=== PATIENT | female | born 1965 | race Hispanic/Latino ===

== ENCOUNTER 2021-05-18 16:02 | Emergency (ER) | payer SELFPAY ==
--- NOTE | 2021-05-18 16:21 | RAD REPORT ---
EXAM DESCRIPTION: RAD - Chest Single View - 05/18/2021 4:14 pm CLINICAL HISTORY: CPR COMPARISON: No comparisons FINDINGS: Endotracheal tube terminates in the right mainstem bronchus. The left lung is completely o pacified possibly secondary to underlying collapse. There are patchy airspace disease throughout the right lung though most notable within the right upper lobe. Defibrillator pad is seen. The stomach is distended. IMPRESSION: 1. Endotracheal tube in the right mainstem bronchus. This should be retracted by at rosa t 5 centimeters. Discussed with Walt in the ED by Dr. Winkler at 1615 on 05/18/21. 2. Complete opacification of the left hemithorax may be secondary to atelectasis as a result of the r ight mainstem bronchus intubation. There are irregular airspace opacities throughout the right lung t hat could reflect multiple etiologies though aspiration is a primary consideration.
[2021-05-18] MEDS ORDERED: NOREPINEPHRINE 4mg/D5W 250mL 4 MG/250 ML BAG IV ONE ×3 (16:37→23:13)
[2021-05-18 16:40] LABS: Absolute Lymphocytes (CBC) 10.1 K/uL (0.7-4.9); Basophils % 0.9 % (0-1.3); Hematocrit 48.8 % (36.0-45.0); Lymphocytes % 51.4 % (15.3-44.8); MPV 8.5 fL (7.6-11.3); RBC Red Blood Cell Count 5.29 M/uL (3.86-4.86)
[2021-05-18 16:50] LABS: Protime INR 1.09
--- NOTE | 2021-05-18 16:53 | RAD REPORT ---
EXAM DESCRIPTION: RAD - Chest Single View - 05/18/2021 4:41 pm CLINICAL HISTORY: post intubation COMPARISON: Chest Single View dated 05/18/2021 FINDINGS: Retracted endotracheal tube with improved aeration of left lung. The ET tube is at the car maritza and angled toward the right mainstem bronchus. . Widespread bilateral airspace disease is noted. Defibrillator pad. The heart size is within normal limits. A round calcified structure overlies the r ight upper quadrant. IMPRESSION: Endotracheal tube has been retracted and is at the era. Suggest retracting by another 2 centimeters for more optimal positioning. Widespread bilateral airspace disease may reflect massiv e aspiration, pneumonia, and/or pulmonary edema.
[2021-05-18 17:10] LABS: Blood Morphology Comment NOT SEEN (NOT SEEN); Platelet Estimate ADEQ; White Blood Cell Scan OK (OK)
--- NOTE | 2021-05-18 17:34 | RAD REPORT ---
EXAM DESCRIPTION: RAD - Chest Single View - 05/18/2021 5:21 pm CLINICAL HISTORY: POST ETT COMPARISON: Chest Single View dated 05/18/2021; Chest Single View dated 05/18/2021 FINDINGS: Retracted endotracheal tube now in better positioning. Re- demonstrated bilateral widespre ad airspace disease. An enteric tube is in place with tip overlying the stomach. IMPRESSION: Endotracheal tube in better position just above the era. An enteric tube tip terminat es overlying the stomach.
--- NOTE | 2021-05-18 17:42 | RAD REPORT ---
EXAM DESCRIPTION: CT - Head Brain Wo Cont - 05/18/2021 5:29 pm CLINICAL HISTORY: Post CPR...Had headache and numbess prior to event COMPARISON: No comparisons TECHNIQUE: All CT scans are performed using dose optimization technique as appropriate and may inclu de automated exposure control or mA/KV adjustment according to patient size. FINDINGS: Large right cerebellar intraparenchymal hemorrhage measuring 3.8 x 2.3 centimeters. There is increased dilatation of the ventricular system. The basilar cisterns are effaced and there is karissa r mass effect on the brainstem. Some hemorrhage is noted in the third and fourth ventricles. No skull fracture. There is a subdural component as well along the right transverse sinus. IMPRESSION: Large right cerebellar intraparenchymal hemorrhage with intraventricular extension resul ting in effacement of the basilar cisterns, significant mass effect on the brainstem, and developing hydrocephalus. Discussed with Hira Hoffmann by Dr. Winkler at [id number] on 05/18/21
[2021-05-18 17:52] LABS: Arterial Blood Carboxyhemoglob 0.1 % (0-1.5); Blood Gas Oxyhemoglobin 73.3 % (94-97); Blood O2 Saturation 74.1 % (92-98.5)
[2021-05-18] MEDS ORDERED: NOREPINEPHRINE 4 MG in D5W 250 ML IV PRN (18:27)
[2021-05-18 19:30] LABS: Albumin 3.3 g/dL (3.4-5.0); Bilirubin Direct 0.3 mg/dL (0-0.2); Bilirubin Total 0.9 mg/dL (0.2-1.0)
[2021-05-18 19:39] LABS: Potassium 4.4 mmol/L (3.5-5.1)
[2021-05-18 19:42] LABS: Troponin (Emerg Dept Use Only) 1.33 ng/mL (0.0-0.045)
[2021-05-19] MEDS ORDERED: D5W 250 ML IV ONE ×3 (00:22→05:03)
[2021-05-19] MEDS ORDERED: NOREPINEPHRINE 4 MG/4 ML VIAL ONE ×4 (00:22→07:14)
[2021-05-19] MEDS ORDERED: D10W 250 ML IV ONE (07:15)
[2021-05-19] MEDS ORDERED: NOREPINEPHRINE 8 MG in Dextrose 5%-Water 500 ML IV PRN (07:19)
[2021-05-19] MEDS ORDERED: NA CHLORIDE 0.9% 250 ML ONE (07:21)
[2021-05-19] MEDS ORDERED: DOPAMINE/D5W 400 MG/250 ML BAG IV ONE (12:28)
[2021-05-19 12:53] LABS: Arterial Blood Carboxyhemoglob 0.6 % (0-1.5); Blood Gas Oxyhemoglobin 93.9 % (94-97); Blood O2 Saturation 95.5 % (92-98.5)
[2021-05-19 13:07] LABS: Arterial Blood Carboxyhemoglob 0.1 % (0-1.5); Blood Gas Oxyhemoglobin 97.6 % (94-97); Blood O2 Saturation 98.9 % (92-98.5)
[2021-05-19] MEDS ORDERED: Phenylephrine HCl 10 MG/ML 1 ML VIAL ONE (13:48)
[2021-05-19] MEDS ORDERED: NA CHLORIDE 0.9% 100 ML ONE ×2 (13:49→17:48)
--- NOTE | 2021-05-19 14:17 | P.PN ---
Date of Service: 05/19/21 CT scan: FINDINGS: Large right cerebellar intraparenchymal hemorrhage measuring 3.8 x 2.3 centimeters. There is increased dilatation of the ventricular system. The basilar cisterns are effaced and there is clear mass effect on the brainstem. Some hemorrhage is noted in the third and fourth ventricles. No skull fracture. There is a subdural component as well along the right transverse sinus. IMPRESSION: Large right cerebellar intraparenchymal hemorrhage with intraventricular extension resulting in effacement of the basilar cisterns, significant mass effect on the brainstem, and developing hydrocephalus. Patient presented to the ER with CPR in progress. Work-up included CT scan showing large right cerebellar hemorrhage with intraventricular extension resulting in effacement of basilar cisterns. Significant mass-effect on brainstem and developing hydrocephalus. Case discussed at length with ER physicians. Patient not able to be transferred as neurosurgery recommended withdrawal of care. The patient was monitored for any changes. No reflexes noted. No significant change in status. Evaluation for spontaneous breathing failed. ER provider reports family to withdrawal care. Prognosis poor. Proceed with withdrawal of care.
[2021-05-19] MEDS ORDERED: LEVOTHYROXINE SODIUM 100 MCG VIAL IV ONE (16:45)
[2021-05-19 16:59] LABS: Absolute Lymphocytes (CBC) 2.8 K/uL (0.7-4.9); Basophils % 0.4 % (0-1.3); Hematocrit 46.1 % (36.0-45.0); Lymphocytes % 21.3 % (15.3-44.8); MPV 7.7 fL (7.6-11.3); RBC Red Blood Cell Count 5.16 M/uL (3.86-4.86)
[2021-05-19] MEDS ORDERED: ROSUVASTATIN 10 MG TAB PO SCH (17:00)
[2021-05-19] MEDS ORDERED: LEVOTHYROXINE SODIUM 100 MCG VIAL IV SCH (17:00)
[2021-05-19] MEDS ORDERED: ESTROGENS,CONJ 25 MG IV IV SCH (17:00)
[2021-05-19] MEDS ORDERED: NACHLORIDE 0.45% 500 ML IV SCH (17:00)
[2021-05-19 17:11] LABS: Protime INR 1.15
[2021-05-19] MEDS ORDERED: ACETAMINOPHEN 120 MG/SUPP PR ONE (17:13)
[2021-05-19] MEDS ORDERED: ACETAMINOPHEN 325 MG/SUPP PR ONE (17:13)
[2021-05-19] MEDS ORDERED: ACETAMINOPHEN 650MG/RECT SUPP PR ONE (17:14)
[2021-05-19 17:23] LABS: Albumin 2.8 g/dL (3.4-5.0); Bilirubin Direct 0.7 mg/dL (0-0.2); Bilirubin Total 1.5 mg/dL (0.2-1.0); Phosphorus 5.4 mg/dL (2.5-4.9); Potassium 3.7 mmol/L (3.5-5.1); Protein, Total 6.5 g/dL (6.4-8.2)
[2021-05-19 17:27] LABS: CKMB Creatine Kinase MB 34.1 ng/mL (1.0-3.6); Troponin (Emerg Dept Use Only) 6.1 ng/mL (0.0-0.045)
[2021-05-19] MEDS ORDERED: VASOPRESSIN 80 UNIT in NA CHLORIDE 0.9% 250 ML IV PRN (17:44)
[2021-05-19] MEDS ORDERED: ALBUTEROL 2.5 MG/3 ML NEB SOL ONE (17:45)
[2021-05-19] MEDS ORDERED: NA CHLORIDE 0.9% 1,000 ML ONE ×2 (17:48→21:31)
[2021-05-19] MEDS ORDERED: HEPARIN 5000 UNIT/ML 1 ML VIAL ONE (17:48)
[2021-05-19] MEDS ORDERED: HYDROCORTISONE SUC 100 MG INJ ONE (17:48)
[2021-05-19] MEDS ORDERED: PIPERACIL/TAZO 3.375 GM VIAL IV ONE (17:48)
--- NOTE | 2021-05-19 17:53 | RAD REPORT ---
EXAM DESCRIPTION: RAD - Chest Single View - 05/19/2021 5:31 pm CLINICAL HISTORY: [facility] COMPARISON: May 18 TECHNIQUE: AP portable chest image was obtained 05/19/2021 5:31 pm . FINDINGS: Portable supine chest shows low lung volumes. Endotracheal tube is in place. Tip is 1 cent imeter above the era similar to prior imaging. NG tube tip is in the proximal stomach with the dede e port at the GE junction. Patchy interstitial and alveolar opacities are present improved from prior imaging. Heart and vascula ture are normal. No measurable pleural effusion and no pneumothorax. No acute bony abnormality seen. No acute aortic findings suspected. Rounded eggshell calcification mass of the right upper quadrant n oted but not fully evaluated. IMPRESSION: Interstitial and alveolar opacities have shown improvement from prior day imaging. Endotracheal tube tip is 1 centimeter above the era, similar to prior day study. No change in posi tion of the NG tube.
[2021-05-19] MEDS ORDERED: ESTROGENS,CONJ 25 MG IV ONE (17:54)
[2021-05-19] MEDS ORDERED: WATER FOR INJ,STERILE 10 ML ONE (17:55)
[2021-05-19] MEDS ORDERED: VASOPRESSIN 80 UNIT in NA CHLORIDE 0.9% 250 ML IV SCH (18:00)
[2021-05-19 20:43] LABS: Arterial Blood Carboxyhemoglob 0.7 % (0-1.5); Blood Gas Oxyhemoglobin 95.1 % (94-97); Blood O2 Saturation 96.9 % (92-98.5)
[2021-05-19] MEDS ORDERED: NOREPINEPHRINE 4mg/D5W 250mL 4 MG/250 ML BAG IV ONE (21:26)
[2021-05-19 21:53] LABS: Arterial Blood Carboxyhemoglob 0.7 % (0-1.5); Blood Gas Oxyhemoglobin 97.3 % (94-97); Blood O2 Saturation 99.2 % (92-98.5)
[2021-05-19 22:35] LABS: Arterial Blood Carboxyhemoglob 0.7 % (0-1.5); Blood Gas Oxyhemoglobin 97.1 % (94-97); Blood O2 Saturation 99.1 % (92-98.5)
[2021-05-19] MEDS ORDERED: KCL 20 MEQ/100 mL IVPB 20 MEQ/100 ML BAG IV ONE (23:03)
[2021-05-20] MEDS ORDERED: NOREPINEPHRINE 4mg/D5W 250mL 4 MG/250 ML BAG IV ONE ×2 (00:58→05:31)
[2021-05-20 02:55] LABS: Absolute Lymphocytes (CBC) 1.3 K/uL (0.7-4.9); Basophils % 0.5 % (0-1.3); Hematocrit 42.5 % (36.0-45.0); Lymphocytes % 17.4 % (15.3-44.8); MPV 8.5 fL (7.6-11.3); RBC Red Blood Cell Count 4.77 M/uL (3.86-4.86)
[2021-05-20 02:59] LABS: Protime INR 1.29
[2021-05-20 03:16] LABS: Magnesium 1.9 mg/dL (1.8-2.4); Phosphorus 2.7 mg/dL (2.5-4.9); Potassium 3.4 mmol/L (3.5-5.1)
[2021-05-20 03:18] LABS: CKMB Creatine Kinase MB 22.5 ng/mL (1.0-3.6); Troponin I 3.47 ng/mL (0.0-0.045)
[2021-05-20] MEDS ORDERED: ACETAMINOPHEN 650MG/RECT SUPP PR ONE (03:27)
[2021-05-20] MEDS ORDERED: LEVOTHYROXINE SODIUM 100 MCG VIAL IV ONE (04:14)
[2021-05-20] MEDS ORDERED: NACHLORIDE 0.45% 1,000 ML IV ONE (04:32)
[2021-05-20 04:54] LABS: Albumin 2.4 g/dL (3.4-5.0); Bilirubin Total 2.1 mg/dL (0.2-1.0)
[2021-05-20 05:01] LABS: Arterial Blood Carboxyhemoglob 0.6 % (0-1.5); Blood Gas Oxyhemoglobin 97.4 % (94-97); Blood O2 Saturation 99.2 % (92-98.5)
[2021-05-20] MEDS ORDERED: PIPERACIL/TAZO 3.375 GM VIAL IV ONE (07:13)
[2021-05-20] MEDS ORDERED: HYDROCORTISONE SUC 100 MG INJ ONE (07:13)
[2021-05-20] MEDS ORDERED: NA CHLORIDE 0.9% 100 ML ONE (07:13)
[2021-05-20] MEDS ORDERED: NOREPINEPHRINE 4 MG/4 ML VIAL ONE (08:16)
[2021-05-20] MEDS ORDERED: D5W 250 ML IV ONE (08:17)
--- NOTE | 2021-05-20 08:58 | ER ---
Nurse's Notes [facility] Name: Lesly Vaughn Age: 55 yrs Sex: Female : 1965 Arrival Date: 05/18/2021 Time: 16:03 Bed 3 Private MD: Diagnosis: Other nontraumatic intracerebral hemorrhage Presentation: 05/18 15:58 Chief complaint: EMS states: they arrived to home, patient was alert upon arrival ap3 complaining of headache and numbness in her arms. EMS reports patient lost consciousness and pulse while in route to hospital. 15:58 Care prior to arrival: CPR manually performed by EMS. Compressions began prior to ap3 arrival. 15:58 Method Of Arrival: EMS: [facility] ap3 15:58 Acuity: DAYO 1 ap3 15:58 Care prior to arrival: Oral intubation, Medication(s) given: EPI X's 2. ap3 17:00 Coronavirus screen: At this time, the client does not indicate any symptoms associated jd3 with coronavirus-19. Ebola Screen: Patient negative for fever greater than or equal to 101.5 degrees Fahrenheit, and additional compatible Ebola Virus Disease symptoms. Initial Sepsis Screen: Does the patient meet any 2 criteria? No. Patient's initial sepsis screen is negative. Does the patient have a suspected source of infection? No. Patient's initial sepsis screen is negative. 17:12 Risk Assessment: Do you want to hurt yourself or someone else? Unable to obtain. Onset ap3 of symptoms was May 18, 2021. Triage Assessment: 17:12 General: Appears distressed, Behavior is unresponsive. Pain: Unable to use pain scale. ap3 Patient is unresponsive. Historical: - Allergies: 17:11 No Known Allergies; ap3 - Home Meds: 17:11 None [Active]; ap3 - PMHx: 17:11 None; ap3 - Immunization history:: Adult Immunizations unknown. - Social history:: Smoking status: unknown. Screenin:11 Abuse screen: Denies threats or abuse. Nutritional screening: No deficits noted. ap3 Tuberculosis screening: No symptoms or risk factors identified. 17:49 Fall Risk Total Richardson Fall Scale indicates No Risk (0-24 pts). jd3 Assessment: 15:58 CPR assessment: unresponsive, no respiratory effort, intubated, Ambu ventilation, ap3 pulses absent w/ compressions. 15:59 General: patient moved to stretcher, defibrillator pads placed. ap3 16:00 Reassessment:. General: Appears distressed, Behavior is unresponsive. jd3 17:14 Respiratory: Breath sounds are diminished in left lower lobe after initial intubation. jd3 17:20 General: Behavior is unresponsive. Pain: Unable to use pain scale. Patient is jd3 intubated. Neuro: Level of Consciousness is unresponsive, intubated. Pupils are fixed, constricted. Cardiovascular: Heart tones present Rhythm is regular. Respiratory: Breath sounds are clear bilaterally. after ET tube was retracted to proper placement. 17:45 Reassessment: No changes from previously documented assessment. Patient and/or family jd3 updated on plan of care and expected duration. Pain level reassessed. cell phone and car keys given to pt's daughter. 18:00 Reassessment: No changes from previously documented assessment. Patient and/or family jd3 updated on plan of care and expected duration. Pain level reassessed. daughter remains at bedside. 18:53 Reassessment: family at bedside. ap3 18:57 Reassessment: No changes from previously documented assessment. Patient and/or family jd3 updated on plan of care and expected duration. Pain level reassessed. provider at bedside discussing plan of care with family. 20:03 Reassessment: Pt remains unresponsive, intubated. with family at the bedside. IV jb4 medications infusing without difficulty. [facility] updated on pt status. 21:00 Reassessment: No changes from previously documented assessment. Patient and/or family jb4 updated on plan of care and expected duration. Pain level reassessed. 22:00 Reassessment: No changes from previously documented assessment. Patient and/or family jb4 updated on plan of care and expected duration. Pain level reassessed. 23:00 Reassessment: No changes from previously documented assessment. Patient and/or family jb4 updated on plan of care and expected duration. Pain level reassessed. 05/19 07:00 Reassessment: Report received from Makenzie SUAREZ, family at bedside, pt intubated and hb unresponsive, on Levophed and Dopamine, awaiting [facility] at this time. 07:43 Reassessment: Reassessment: Spoke with Brenda, sending Patient Liaison from [facility]. Pt remains intubated, on pressors, unresponsive. Family at bedside. 08:15 Reassessment: No changes from previously documented assessment. Patient and/or family hb updated on plan of care and expected duration. Pain level reassessed. 09:28 Reassessment: No changes from previously documented assessment. Patient and/or family hb updated on plan of care and expected duration. Pain level reassessed. 10:30 Reassessment: No changes from previously documented assessment. Patient and/or family hb updated on plan of care and expected duration. Pain level reassessed. 11:32 Reassessment: KYM Caceres and Jasmin RT at bedside. hb 12:45 Reassessment: No changes from previously documented assessment. Patient and/or family hb updated on plan of care and expected duration. Pain level reassessed. 13:30 Reassessment: Family at bedside, [facility] reps in house. Pt remains intubated and on hb pressors. 13:32 General: KYM Caceres notified SBP 80s, HR 150, dopamine discontinued, tamra started at 50 hb mcg/min.. 14:24 Reassessment: Patient and/or family updated on plan of care and expected duration. Pain hb level reassessed. Family remains at bedside. 15:16 Reassessment: No changes from previously documented assessment. hb 15:32 Reassessment: [facility] reps and family at bedside. hb 16:12 Reassessment: Pt remains intubated and on pressors. Family at bedside. Awaiting [facility] direction at this time. 17:07 Reassessment: KYM Caceres and [facility] coordinator notified catheter temp 100.3, pt cleaned hb of incontinence and rectal Tylenol administered as ordered. Repeat bloodwork sent. Awaiting medication delivery from pharmacy at this time. 18:08 Reassessment: No changes from previously documented assessment. hb 19:44 Reassessment: [facility] Coordinator at bedside, vasopressin infusion stopped at this iw time. 21:09 Reassessment: repeat ABG done, vent setting changed, Levophed titrated down. iw 05/20 08:00 Reassessment: Pt remains intubated, on pressors. [facility] nurse present, awaiting hb transport at this time. Vital Signs: 05/18 16:03 BP 176 / 140; Pulse 150; ap3 16:06 BP 135 / 94; Pulse 118; Pulse Ox 59% on ETT ambu; ap3 16:08 BP 103 / 72; Pulse 108; Pulse Ox 57% on ETT ambu; ap3 16:09 BP 76 / 57; Pulse 103; Pulse Ox 64% on ETT ambu; ap3 16:11 BP 62 / 45; Pulse 89; Pulse Ox 68% on ETT ambu; ap3 16:16 BP 60 / 46; Pulse 86; Pulse Ox 73% on ETT ambu; ap3 16:19 BP 64 / 44; Pulse 91; Pulse Ox 82% on ETT ambu; ap3 16:30 BP 91 / 58; Pulse 111; Pulse Ox 78% on ETT ambu; ap3 16:32 BP 85 / 55; Pulse 113; Pulse Ox 78% on ETT ambu; ap3 16:35 BP 89 / 54; Pulse 110; Pulse Ox 75% on ETT vent; ap3 17:13 BP 81 / 50; Pulse 106; Resp 20; Temp 94.9(C); Pulse Ox 72% on ETT vent; ap3 17:30 BP 77 / 56; Pulse 103; Pulse Ox 83% on ETT vent; ap3 18:00 BP 86 / 63; Pulse 110; Resp 20 A; Temp 95.1(C); Pulse Ox 89% on ETT vent; jd3 18:58 BP 73 / 52; Pulse 109; Resp 20 A; Pulse Ox 90% on ETT vent; jd3 20:03 BP 106 / 84; Pulse 101; Resp 20; Temp 97.5(C); Pulse Ox 96% on 90% FiO2 ETT vent; jb4 21:00 BP 86 / 66; Pulse 130; Resp 20; Pulse Ox 98% on 100% FiO2 ETT vent; jb4 22:00 BP 105 / 72; Pulse 121; Resp 20; Pulse Ox 96% on 100% FiO2 ETT vent; jb4 23:00 BP 95 / 70; Pulse 121; Resp 20; Pulse Ox 97% on 100% FiO2 ETT vent; jb4 05/19 07:00 BP 121 / 88; Pulse 127; Resp 20; Temp 99.1(C); Pulse Ox 98% ; hb 07:13 BP 116 / 94; Pulse 129; hb 07:30 BP 115 / 79; Pulse 130; hb 07:45 BP 114 / 83; Pulse 131; hb 08:00 BP 116 / 76; Pulse 128; Resp 20; Temp 99.1(C); Pulse Ox 98% on 85% FiO2 ETT vent; hb 08:15 BP 101 / 83; Pulse 127; hb 08:30 BP 107 / 84; Pulse 124; hb 08:45 BP 99 / 80; Pulse 123; Resp 20; Temp 99.1(C); Pulse Ox 98% on 85% FiO2 ETT vent; hb 09:00 BP 103 / 81; Pulse 124; hb 09:15 BP 90 / 65; Pulse 120; Resp 20; Temp 99.1(C); Pulse Ox 98% on 80% FiO2 ETT vent; hb 09:30 BP 106 / 77; Pulse 122; hb 09:45 BP 101 / 76; Pulse 124; hb 10:00 BP 97 / 72; Pulse 117; Resp 20; Temp 99.3(C); Pulse Ox 98% on 85% FiO2 ETT vent; hb 10:15 BP 93 / 79; Pulse 118; hb 10:30 BP 98 / 78; Pulse 120; hb 10:45 BP 91 / 70; Pulse 120; hb 11:00 BP 88 / 60; Pulse 121; Resp 20; Temp 99.3; Pulse Ox 98% on 100% FiO2 ETT vent; hb 11:15 BP 81 / 69; Pulse 120; hb 11:30 BP 88 / 70; Pulse 120; Resp 20; Temp 99.4(C); Pulse Ox 98% on 100% FiO2 ETT vent; hb 11:45 BP 95 / 64; Pulse 124; hb 12:00 BP 84 / 60; Pulse 120; Resp 20; Pulse Ox 98% on 100% FiO2 ETT vent; hb 12:15 Resp 0; hb 12:30 BP 88 / 73; Pulse 121; Resp 20; Pulse Ox 98% on 100% FiO2 ETT vent; hb 12:45 BP 71 / 45; Pulse 115; hb 13:00 BP 79 / 51; Pulse 122; Resp 20; Pulse Ox 98% on 100% FiO2 ETT vent; hb 13:15 BP 81 / 64; Pulse 149; Resp 20; Temp 99.4; Pulse Ox 98% on 100% FiO2 ETT vent; hb 13:30 BP 83 / 66; Pulse 137; Resp 20; Pulse Ox 97% on 100% FiO2 ETT vent; hb 13:45 BP 70 / 53; Pulse 120; Resp 20; Pulse Ox 98% on 100% FiO2 ETT vent; hb 14:00 BP 99 / 77; Pulse 121; Resp 20; Pulse Ox 97% on 100% FiO2 ETT vent; hb 14:15 BP 102 / 80; Pulse 123; Resp 20; Temp 99.6(C); Pulse Ox 98% on 100% FiO2 ETT vent; hb 14:30 BP 100 / 79; Pulse 122; Resp 20; Pulse Ox 98% on 100% FiO2 ETT vent; hb 14:45 BP 97 / 81; Pulse 110; hb 15:00 BP 96 / 84; Pulse 121; Resp 20; Temp 99.8(C); Pulse Ox 99% on 100% FiO2 ETT vent; hb 15:15 BP 55 / 42; Pulse 121; Resp 20; Temp 99.8(C); Pulse Ox 99% on 100% FiO2 ETT vent; hb 15:30 BP 72 / 53; Pulse 123; Resp 20; Temp 99.9(C); Pulse Ox 100% on 100% FiO2 ETT vent; hb 15:45 BP 82 / 70; Pulse 125; Resp 20; Temp 100(C); Pulse Ox 100% on 100% FiO2 ETT vent; hb 16:00 BP 95 / 57; Pulse 125; Resp 20; Temp 100.1(C); Pulse Ox 100% on 100% FiO2 ETT vent; hb 16:15 BP 94 / 74; Pulse 124; hb 16:30 BP 92 / 69; Pulse 133; Temp 100.3(C); hb 16:45 BP 84 / 55; Pulse 128; hb 17:00 BP 82 / 65; Pulse 134; Resp 20; Temp 100.5(C); Pulse Ox 97% on 100% FiO2 ETT vent; hb 17:15 BP 74 / 61; Pulse 128; hb 17:30 BP 76 / 64; Pulse 124; hb 17:45 BP 103 / 59; Pulse 136; hb 18:00 BP 85 / 70; Pulse 130; Resp 20; Temp 100.4; Pulse Ox 97% on 100% FiO2 ETT vent; hb 18:15 BP 136 / 107; Pulse 130; Resp 20; Pulse Ox 98% on 100% FiO2 ETT vent; hb 18:30 BP 134 / 91; Pulse 124; Resp 20; Temp 100.0; Pulse Ox 98% on ETT vent; hb 18:45 BP 125 / 89; Pulse 125; Resp 20; Temp 99.9(C); Pulse Ox 98% on 100% FiO2 ETT vent; hb 19:00 BP 133 / 89; Pulse 127; Resp 20; Temp 99.9(C); Pulse Ox 98% on 100% FiO2 ETT vent; hb 19:54 BP 135 / 94; Pulse 135; Resp 21 A; Temp 99.6(C); Pulse Ox 99% on ETT vent; iw 20:13 BP 135 / 93; Pulse 129; Resp 20; Temp 99.6(C); Pulse Ox 99% on ETT vent; iw 21:09 BP 141 / 92; Pulse 137; iw 08/06 02:29 BP 117 / 89; Pulse 161; Resp 19 A; Temp 100.4(C); Pulse Ox 100% on ETT vent; iw 05:17 BP 93 / 82; Pulse 144; Resp 15 A; Temp 100.0(C); Pulse Ox 100% on ETT vent; iw 06:41 BP 87 / 78; Pulse 128; Resp 18; Temp 99.7(C); Pulse Ox 100% on ETT vent; iw 08:15 BP 110 / 80; Pulse 127; Resp 20; Temp 99.5(C); Pulse Ox 98% on 100% FiO2 ETT vent; hb 09:00 BP 118 / 84; Pulse 130; Resp 20; Pulse Ox 100% on 100% FiO2 ETT vent; hb Nubia Coma Score: 05/18 20:19 Eye Response: none(1). Verbal Response: none(1). Motor Response: none(1). Modifying jr8 Factors: Intubated. Total: 3. ED Course: 16:01 Assisted provider with central line placement. Set up central line tray. Triple lumen ap3 line placed in right femoral. Line placed by Cesar Arreola MD Placement verified by blood return, Dressed with Tegaderm, Blood was collected. Was handwashing/sanitizing done immediately prior to procedure? Yes. Was patient positioned to in a way to prevent air embolism? Yes. Was procedure site sterilized? Yes, with Was the site allowed to dry? Yes. During the procedure, did the Practitioner(s) maintain a sterile field? Yes. Were unused ports clamped during insertion? Yes. Was blood aspirated from each lumen? Yes. After the procedure, did the Practitioner(s) clean the site and apply a sterile dressing? Yes. 16:01 Intubation: 7.5 Fr. ETT placed orally. Performed by Morris MEJÍA Placement verified ap3 by CXR. 16:03 Patient arrived in ED. ds1 16:07 X-ray(s) taken. ap3 16:10 ABG drawn. by RT staff. ap3 16:13 XRAY Chest (1 view) In Process Unspecified. EDMS 16:16 EKG done, by ED staff, reviewed by Morris MEJÍA. ap3 16:17 X-ray(s) taken. ap3 16:21 Morris Hoffmann PA is PHCP. jr8 16:21 Cesar Arreola MD is Attending Physician. jr8 16:25 Arm band placed on right wrist. ap3 16:25 Patient has correct armband on for positive identification. ap3 16:27 Alcantar cath inserted, using sterile technique, 16 Fr., by vt, balloon inflated, to ap3 gravity drainage. 16:28 NGT: inserted 16 Fr. via left nare. verified placement of air over stomach, verified ap3 return of gastric contents, to intermittent suction. Returned gastric contents. Returned bright red blood. 16:37 Warm blanket given. ap3 16:41 XRAY Chest (1 view) In Process Unspecified. EDMS 16:46 Triage completed. ap3 16:51 Intubation: EMS valente tube removed. ap3 17:00 Som Nieto, RN is Primary Nurse. jd3 17:09 X-ray(s) taken. ap3 17:[address] with RN, RT and Provider via stretcher. ap3 17:21 Chest Single View XRAY In Process Unspecified. EDMS 17:29 Patient moved back from CT. ap3 17:29 CT Head Brain wo Cont In Process Unspecified. EDMS 17:35 initiated transfer to [facility]. bd 17:39 pt denied at [facility] due to all [facility] hospitals being saturated. per Franchesca. bd 17:40 initiated transfer to [facility]. bd 18:29 transfer cancelled by provider. bd 08 17:33 Chest Single View XRAY In Process Unspecified. EDMS 08 09:02 Patient transferred, IV remains in place. hb Administered Medications: 05/19 13:55 Discontinued: Dopamine drip 5 mcg/kg/min - (DOPamine 400 mg, D5W 250 ml) IV at hb calculated rate continuous; Titrate to keep systolic blood pressure greater than 90mmHg 05/18 15:15 Drug: NS 0.9% 1000 ml Route: IV; Rate: 1 bolus; Site: right antecubital; ap3 16:04 Drug: NS 0.9% 1000 ml Route: IV; Rate: 1 bolus; Site: right antecubital; ap3 16:12 Drug: NS 0.9% 1000 ml Route: IV; Rate: 1 bolus; Site: right antecubital; ap3 16:15 Drug: Dopamine drip 5 mcg/kg/min - (DOPamine 400 mg, D5W 250 ml) Route: IV; Rate: ap3 calculated rate; Site: right femoral; 05/19 07:15 Follow up: Rate change 35 mcg/min hb 05/18 16:18 Drug: Levophed (norepinephrine) (4 mg/250 mL D5W 10 mcg/min Route: IV; Rate: calculated ap3 rate; Site: right femoral; 16:53 Follow up: Rate change 20 mcg/min ap3 05/19 13:31 Drug: Phenylephrine 50 mcg/min Route: IV; Rate: calculated rate; Site: Other; hb 13:54 Follow up: Rate change 100 mcg/min hb 18:41 Follow up: Response: No adverse reaction; IV Status: Infusion continued hb 17:13 Drug: Tylenol Suppository 650 mg Route: IA; hb 18:41 Follow up: Response: No adverse reaction; Temperature is decreased hb 17:25 Drug: Solu-CORTEF (hyrdoCORTISONE) 100 mg Route: IVP; Site: Other; hb 18:00 Follow up: Response: No adverse reaction hb 17:25 Drug: Zosyn (piperacillin-tazobactam) 3.375 grams Route: IVPB; Infused Over: 60 mins; hb Site: Other; 17:25 Drug: Albuterol 2.5 mg Route: Inhalation; hb 18:41 Follow up: Response: No adverse reaction hb 17:25 Drug: HEParin 5000 units Route: Sub-Q; Site: abdomen; hb 18:41 Follow up: Response: No adverse reaction hb 17:59 Drug: NS 0.9% 1000 ml Route: IV; Rate: 125 ml/hr; Site: Other; hb 18:06 Drug: Vasopressin 0.02 units/min Route: IV; Rate: calculated rate; Site: Other; hb 21:37 Drug: Sodium Bicarbonate 1 amp Route: IVP; Site: right femoral; iw 23:01 Drug: Sodium Bicarbonate 1 amp Route: IVP; Site: right femoral; iw 23:01 Drug: Potassium Chloride 20 mEq Route: IV; Rate: calculated rate; Site: right femoral; iw 08 03:45 Drug: Tylenol Suppository 650 mg Route: IA; iw 07:11 Drug: Zosyn (piperacillin-tazobactam) 3.375 grams Route: IVPB; Infused Over: 60 mins; iw Site: right femoral; 07:11 Drug: Solu-CORTEF (hyrdoCORTISONE) 100 mg Route: IVP; Site: right femoral; iw Point of Care Testing: Blood Glucose: 05/18 16:05 Blood Glucose: 229 mg/dL; ap3 Ranges: Intake: 05/19 15:00 IV: 1161ml; Total: 1161ml. hb 16:00 IV: 151ml (IV Fluid); Total: 1312ml. hb 18:13 IV: 472ml (IV Fluid); Total: 1784ml. hb Output: 07:45 Urine: 1250ml (Alcantar); Total: 1250ml. hb 10:30 Urine: 500ml (Alcantar); Total: 1750ml. hb 16:00 Urine: 600ml (Alcantar); Total: 2350ml. hb 18:13 Urine: 75ml (Alcantar); Total: 2425ml. hb Outcome: 05/18 16:01 Outcome Successful resuscitation-ROSC ap3 05/20 08:57 ER care complete, transfer ordered by MD. walker 09:01 Transferred by ground EMS Note: with [facility] to [facility]b 09:01 Condition: unchanged 09:25 Patient left the ED. aa5 Signatures: Dispatcher [employer] EDMS Malinda Easley Demi ds1 Stephanie Zhao RN RN iw Christina Pablo RN RN aa5 Morris Hoffmann PA PA jr8 Breann Raman RN RN Waldemar Dawkins RN RN jb4 Som Nieto, RN RN jd3 Amanda Galdamez RN RN ap3 Corrections: (The following items were deleted from the chart) 05/18 17:10 16:01 Outcome Resuscitation successful ap3 ap3 17:11 16:01 Outcome ROSC 1601 ap3 ap3 17:48 17:14 Respiratory: Breath sounds are diminished in left lower lobe ap3 jd3 18:04 17:41 Reassessment: cell phone and car keys given to pt's daughter. jrhina jrhina 05/19 09:28 07:00 Reassessment: Report received from Makenzie copeland hb 11:35 11:00 BP 88 / 60; Pulse 121bpm; Resp 20bpm; Pulse Ox 98% FiO2 85% vent; Temp 99.3F; hb hb 11:35 11:30 BP 88 / 70; Pulse 120bpm; Resp 20bpm; Pulse Ox 98% FiO2 85% vent; Temp 99.4F hb Catheter; hb 13:56 13:35 Reassessment: Family at bedside, [facility] reps in house. Pt remains intubated and hb on pressors. hb 14:39 14:15 BP 102 / 80; Pulse 123bpm; Resp 20bpm; Pulse Ox 98% FiO2 100% vent; Temp 99.3F hb Catheter; hb 17:15 17:00 BP 82 / 65; Pulse 134bpm; Resp 85bpm; Pulse Ox 97% FiO2 100% vent; Temp 100.5F hb Catheter; hb 19:04 19:02 BP 133 / 89; Pulse 127bpm; Resp 20bpm; Pulse Ox 98% FiO2 100% vent; Temp 99.9F hb Catheter; hb
--- NOTE | 2021-05-20 08:58 | EDPHYS ---
Physician Documentation [facility] Name: Lesly Vaughn Age: 55 yrs Sex: Female : 1965 Arrival Date: 05/18/2021 Time: 16:03 Bed 3 Private MD: ED Physician Cesar Arreola HPI: 05/18 20:19 This 55 yrs old Female presents to ER via EMS with complaints of CPR. jr8 20:19 Preceding the arrest, the patient collapsed. The arrest occurred at home. Pre-hospital jr8 course: The arrest was witnessed by family. EMS care prior to arrival: initiation of ACLS, peripheral IV, was successfully placed. oxygen, Glenn tube. ACLS details: The presenting rhythm is asystole. Medications given by EMS prior to arrival - Epinephrine IV x 2 doses. The patient has not experienced similar symptoms in the past. The patient has not recently seen a physician. Family stated that patient had sudden onset headache in the front that progressively got worse and started complaining about numbness in the hands. Shortly after patient was rendered unconscious and had seizure-like activity. EMS was called at that time. Patient had pulse but was obtunded upon arrival per EMS. Shortly after patient had arrested and EMS his hands. Patient was immediately worked and ACLS started. Patient without pulse upon arrival to emergency room.. Historical: - Allergies: 17:11 No Known Allergies; ap3 - Home Meds: 17:11 None [Active]; ap3 - PMHx: 17:11 None; ap3 - Immunization history:: Adult Immunizations unknown. - Social history:: Smoking status: unknown. ROS: 20:19 Unable to obtain ROS due to comatose state, patient is on ventilator. jr8 Exam: 20:19 Eyes: Periorbital structures: appear normal, Pupils: constricted, bilaterally, No jr8 reactivity to light, Conjunctiva: normal, Sclera: no appreciated abnormality, Lids and lashes: appear normal. 20:19 Cardiovascular: Rate: tachycardic, Rhythm: regular, Pulses: Pulses are 2+ in right femoral artery and left femoral artery. Heart sounds: normal, Edema: is not appreciated. 20:19 Respiratory: Patient was intubated and on ventilator at rate of 16 breaths/min. Bilateral crackles noted diffusely. 20:19 Abdomen/GI: Inspection: obese Palpation: soft, in all quadrants. 20:19 Skin: Appearance: Color: dusky, Temperature: cool. Vital Signs: 16:03 BP 176 / 140; Pulse 150; ap3 16:06 BP 135 / 94; Pulse 118; Pulse Ox 59% on ETT ambu; ap3 16:08 BP 103 / 72; Pulse 108; Pulse Ox 57% on ETT ambu; ap3 16:09 BP 76 / 57; Pulse 103; Pulse Ox 64% on ETT ambu; ap3 16:11 BP 62 / 45; Pulse 89; Pulse Ox 68% on ETT ambu; ap3 16:16 BP 60 / 46; Pulse 86; Pulse Ox 73% on ETT ambu; ap3 16:19 BP 64 / 44; Pulse 91; Pulse Ox 82% on ETT ambu; ap3 16:30 BP 91 / 58; Pulse 111; Pulse Ox 78% on ETT ambu; ap3 16:32 BP 85 / 55; Pulse 113; Pulse Ox 78% on ETT ambu; ap3 16:35 BP 89 / 54; Pulse 110; Pulse Ox 75% on ETT vent; ap3 17:13 BP 81 / 50; Pulse 106; Resp 20; Temp 94.9(C); Pulse Ox 72% on ETT vent; ap3 17:30 BP 77 / 56; Pulse 103; Pulse Ox 83% on ETT vent; ap3 18:00 BP 86 / 63; Pulse 110; Resp 20 A; Temp 95.1(C); Pulse Ox 89% on ETT vent; jd3 18:58 BP 73 / 52; Pulse 109; Resp 20 A; Pulse Ox 90% on ETT vent; jd3 20:03 BP 106 / 84; Pulse 101; Resp 20; Temp 97.5(C); Pulse Ox 96% on 90% FiO2 ETT vent; jb4 21:00 BP 86 / 66; Pulse 130; Resp 20; Pulse Ox 98% on 100% FiO2 ETT vent; jb4 22:00 BP 105 / 72; Pulse 121; Resp 20; Pulse Ox 96% on 100% FiO2 ETT vent; jb4 23:00 BP 95 / 70; Pulse 121; Resp 20; Pulse Ox 97% on 100% FiO2 ETT vent; jb4 05/19 07:00 BP 121 / 88; Pulse 127; Resp 20; Temp 99.1(C); Pulse Ox 98% ; hb 07:13 BP 116 / 94; Pulse 129; hb 07:30 BP 115 / 79; Pulse 130; hb 07:45 BP 114 / 83; Pulse 131; hb 08:00 BP 116 / 76; Pulse 128; Resp 20; Temp 99.1(C); Pulse Ox 98% on 85% FiO2 ETT vent; hb 08:15 BP 101 / 83; Pulse 127; hb 08:30 BP 107 / 84; Pulse 124; hb 08:45 BP 99 / 80; Pulse 123; Resp 20; Temp 99.1(C); Pulse Ox 98% on 85% FiO2 ETT vent; hb 09:00 BP 103 / 81; Pulse 124; hb 09:15 BP 90 / 65; Pulse 120; Resp 20; Temp 99.1(C); Pulse Ox 98% on 80% FiO2 ETT vent; hb 09:30 BP 106 / 77; Pulse 122; hb 09:45 BP 101 / 76; Pulse 124; hb 10:00 BP 97 / 72; Pulse 117; Resp 20; Temp 99.3(C); Pulse Ox 98% on 85% FiO2 ETT vent; hb 10:15 BP 93 / 79; Pulse 118; hb 10:30 BP 98 / 78; Pulse 120; hb 10:45 BP 91 / 70; Pulse 120; hb 11:00 BP 88 / 60; Pulse 121; Resp 20; Temp 99.3; Pulse Ox 98% on 100% FiO2 ETT vent; hb 11:15 BP 81 / 69; Pulse 120; hb 11:30 BP 88 / 70; Pulse 120; Resp 20; Temp 99.4(C); Pulse Ox 98% on 100% FiO2 ETT vent; hb 11:45 BP 95 / 64; Pulse 124; hb 12:00 BP 84 / 60; Pulse 120; Resp 20; Pulse Ox 98% on 100% FiO2 ETT vent; hb 12:15 Resp 0; hb 12:30 BP 88 / 73; Pulse 121; Resp 20; Pulse Ox 98% on 100% FiO2 ETT vent; hb 12:45 BP 71 / 45; Pulse 115; hb 13:00 BP 79 / 51; Pulse 122; Resp 20; Pulse Ox 98% on 100% FiO2 ETT vent; hb 13:15 BP 81 / 64; Pulse 149; Resp 20; Temp 99.4; Pulse Ox 98% on 100% FiO2 ETT vent; hb 13:30 BP 83 / 66; Pulse 137; Resp 20; Pulse Ox 97% on 100% FiO2 ETT vent; hb 13:45 BP 70 / 53; Pulse 120; Resp 20; Pulse Ox 98% on 100% FiO2 ETT vent; hb 14:00 BP 99 / 77; Pulse 121; Resp 20; Pulse Ox 97% on 100% FiO2 ETT vent; hb 14:15 BP 102 / 80; Pulse 123; Resp 20; Temp 99.6(C); Pulse Ox 98% on 100% FiO2 ETT vent; hb 14:30 BP 100 / 79; Pulse 122; Resp 20; Pulse Ox 98% on 100% FiO2 ETT vent; hb 14:45 BP 97 / 81; Pulse 110; hb 15:00 BP 96 / 84; Pulse 121; Resp 20; Temp 99.8(C); Pulse Ox 99% on 100% FiO2 ETT vent; hb 15:15 BP 55 / 42; Pulse 121; Resp 20; Temp 99.8(C); Pulse Ox 99% on 100% FiO2 ETT vent; hb 15:30 BP 72 / 53; Pulse 123; Resp 20; Temp 99.9(C); Pulse Ox 100% on 100% FiO2 ETT vent; hb 15:45 BP 82 / 70; Pulse 125; Resp 20; Temp 100(C); Pulse Ox 100% on 100% FiO2 ETT vent; hb 16:00 BP 95 / 57; Pulse 125; Resp 20; Temp 100.1(C); Pulse Ox 100% on 100% FiO2 ETT vent; hb 16:15 BP 94 / 74; Pulse 124; hb 16:30 BP 92 / 69; Pulse 133; Temp 100.3(C); hb 16:45 BP 84 / 55; Pulse 128; hb 17:00 BP 82 / 65; Pulse 134; Resp 20; Temp 100.5(C); Pulse Ox 97% on 100% FiO2 ETT vent; hb 17:15 BP 74 / 61; Pulse 128; hb 17:30 BP 76 / 64; Pulse 124; hb 17:45 BP 103 / 59; Pulse 136; hb 18:00 BP 85 / 70; Pulse 130; Resp 20; Temp 100.4; Pulse Ox 97% on 100% FiO2 ETT vent; hb 18:15 BP 136 / 107; Pulse 130; Resp 20; Pulse Ox 98% on 100% FiO2 ETT vent; hb 18:30 BP 134 / 91; Pulse 124; Resp 20; Temp 100.0; Pulse Ox 98% on ETT vent; hb 18:45 BP 125 / 89; Pulse 125; Resp 20; Temp 99.9(C); Pulse Ox 98% on 100% FiO2 ETT vent; hb 19:00 BP 133 / 89; Pulse 127; Resp 20; Temp 99.9(C); Pulse Ox 98% on 100% FiO2 ETT vent; hb 19:54 BP 135 / 94; Pulse 135; Resp 21 A; Temp 99.6(C); Pulse Ox 99% on ETT vent; iw 20:13 BP 135 / 93; Pulse 129; Resp 20; Temp 99.6(C); Pulse Ox 99% on ETT vent; iw 21:09 BP 141 / 92; Pulse 137; iw 08/06 02:29 BP 117 / 89; Pulse 161; Resp 19 A; Temp 100.4(C); Pulse Ox 100% on ETT vent; iw 05:17 BP 93 / 82; Pulse 144; Resp 15 A; Temp 100.0(C); Pulse Ox 100% on ETT vent; iw 06:41 BP 87 / 78; Pulse 128; Resp 18; Temp 99.7(C); Pulse Ox 100% on ETT vent; iw 08:15 BP 110 / 80; Pulse 127; Resp 20; Temp 99.5(C); Pulse Ox 98% on 100% FiO2 ETT vent; hb 09:00 BP 118 / 84; Pulse 130; Resp 20; Pulse Ox 100% on 100% FiO2 ETT vent; hb [place] Coma Score: 08 20:19 Eye Response: none(1). Verbal Response: none(1). Motor Response: none(1). Modifying jr8 Factors: Intubated. Total: 3. Procedures: 20:19 Intubation: Intubated orally using # 4 Delgado blade with 7.5 mm ETT. was successful jr8 on first attempt. Ventilated with Ambu bag. ventilator. Tube secured with ETT tao at center of mouth measured 20 cm at teeth. Placement verified by CXR, CO2 detector with (+) color change, auscultating bilateral breath sounds, O2 saturation after procedure was 88 %. Central Line: the site was prepped with Betadine, in sterile fashion, a triple lumen catheter was inserted, in the right femoral vein, in 1 attempts. placement was verified, by blood return, the site was dressed with 4X4s, Tegaderm, foam tape, using sterile technique. MDM: 16:21 Patient medically screened. [facility] 20:19 Data reviewed: vital signs, nurses notes, lab test result(s), EKG, radiologic studies, [facility] CT scan, plain films. Data interpreted: Pulse oximetry: on room air is 96 %. Interpretation: normal. Counseling: I had a detailed discussion with the patient and/or guardian regarding: the historical points, exam findings, and any diagnostic results supporting the discharge/admit diagnosis, lab results, radiology results. 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 We discussed case in detail with [facility] neurosurgery. [facility] after noting patient's condition and seeing the report and scans determined that this is incompatible with life. We brought daughter a patient to conference room to discuss case between us, Trip and her. Daughter understands after discussing case with her that there is 0 survivability chance. We are now pending [facility] as patient is an active donor. [facility] is coming down to determine if she is a viable candidate for harvesting. In the meantime patient will remain on life support.. 05/19 11:03 ED course: [facility] had arrived last night and assessed patient for viability. At this [facility] time they believe patient is a candidate for organ procurement. Today patient has remained in same condition. No purposeful movement, no corneal reflex, no spontaneous respiration over vent and no gag reflex or neuro reflexes present. Patient has not been on sedation since she was brought to the facility. We will perform an apnea test shortly and pending those results may or may not need further testing to declared brain .. 12:33 ED course: Under the auspices of Dr. Jed Coates and Dr. Chris Wagoner is along with [facility] myself. Patient had brain test completed. Results are as follows. Patient has remained in deep unresponsive, with no painful stimuli. Patient has no brainstem reflexes after being tested. Patient has no spontaneous respirations. Patient has no spontaneous movement or posturing. Patient had no elicited cranial nerve reflexes present. Patient's pupils were fixed and dilated. Patient had no corneal reflexes bilaterally. Patient had no eye movements with head turning to the left or to the right. Patient had no nystagmus and response to irrigation with cold water in both ears. Patient had no gag reflex. In addition to this we also completed apnea test. Patient had been on ventilator and preoxygenated. We disconnected the ventilator and gave oxygen via central tracheal cannulation at 12 L/min. Patient was left off ventilator and monitored for the next 10 minutes. During that period of time she had no decrease in oxygenation via pulse oximetry but had 0 spontaneous respirations. ABG was performed before procedure with a CO2 of 46.7. After apnea test was performed another ABG was completed. The CO2 at that time was 92.3. This confirms a CO2 greater than 60 with no spontaneous respirations. Dr. Bassett, Dr. White, and myself discussed results and physical exam. At this time all 3 and her agreement that patient clinically is brain-. Time patient declared medically brain- was 12:35 PM on 05/19/2021. This was relayed to family which they understood. [facility] was also notified.. 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 Family had reported that the patient had experienced some headache and vague neurologic symptoms prior to becoming unconscious and having what appeared to be seizure-like activity. EMS was called and proceeded to apply ACLS algorithms however, when the patient arrived in the ED, she was unresponsive and pulseless. The patient was subsequently revived in the ED. However she never regained consciousness. Since her arrival to the ED, the patient has not required any sedation. She has been on antihypertensive agents. Otherwise the patient has not required any further intervention. CT of the head revealed a significant intracranial hemorrhage with herniation. Today, the patient status has not improved. The family was present at the bedside. We discussed with the family the patient's current status and extremely poor prognosis. Further the patient's neurologic status was established to be critical and not life-sustaining. The patient's neurologic status was then reevaluated. This included cold calorics and an apnea test. All tests performed were consistent with no further neurologic function. Based on these findings and discussion with the family, the decision was made by the family to withdraw further life support. The patient was subsequently pronounced medically brain at 12:35 PM on May 19, 2021. The patient was present at the bedside at that time.. 05/20 08:45 ED course: Patient's vital signs remained acceptable throughout the night. [place] [id number] transfer team is here to take patient now to [facility].. 05/18 16:08 Order name: Basic Metabolic Panel; Complete Time: 20:19 ss 05/18 16:08 Order name: CBC with Diff; Complete Time: 17:42 ss 05/18 16:08 Order name: LFT's; Complete Time: 20:19 05/18 16:08 Order name: Magnesium; Complete Time: 20:19 ss 05/18 16:08 Order name: NT PRO-BNP; Complete Time: 20:19 ss 05/18 16:08 Order name: PT-INR; Complete Time: 17:42 05/18 16:08 Order name: Troponin (emerg Dept Use Only); Complete Time: 20:19 ss 05/18 16:08 Order name: Type And Screen; Complete Time: 17:42 05/18 16:21 Order name: ABG; Complete Time: 18:13 [facility] 05/18 17:10 Order name: CBC Smear Scan; Complete Time: 17:42 EDMS 05/18 17:52 Order name: SARS-COV-2 RT PCR; Complete Time: 18:13 EDMS 05/18 18:36 Order name: glucometer results - FOR PT WITH NO ID 05/18 18:36 Order name: Glucose, Ancillary(No Armband); Complete Time: 23:52 EDMS 05/18 19:19 Order name: ABO/RH no charge; Complete Time: 19:22 EDMS 05/19 12:38 Order name: ABG [facility] 05/19 12:38 Order name: ABG [facility] 05/19 12:39 Order name: ABG Arterial Blood Gas; Complete Time: 12:58 EDMS 05/19 13:05 Order name: ABG Arterial Blood Gas; Complete Time: 13:32 EDMS 05/19 16:30 Order name: Gamma Glutamyl Transpeptidase EDLA 05/19 16:31 Order name: Basic Metabolic Panel 05/19 16:31 Order name: Hepatic Function ss 05/19 16:31 Order name: CBC with Diff; Complete Time: 17:20 ss 05/19 16:31 Order name: Magnesium; Complete Time: 18:03 ss 05/19 16:31 Order name: Phosphorus; Complete Time: 18:03 ss 05/19 16:31 Order name: Troponin (emerg Dept Use Only); Complete Time: 18:03 ss 05/19 16:31 Order name: CPK; Complete Time: 18:03 ss 05/19 16:31 Order name: Ckmb; Complete Time: 18:03 ss 05/19 16:31 Order name: PT-INR; Complete Time: 17:20 ss 05/18 16:08 Order name: XRAY Chest (1 view); Complete Time: 16:25 ss 05/18 16:33 Order name: XRAY Chest (1 view); Complete Time: 17:42 ss 05/19 16:31 Order name: Ptt, Activated; Complete Time: 17:20 ss 05/19 16:31 Order name: Amylase, Serum; Complete Time: 18:03 ss 05/19 16:31 Order name: Lipase; Complete Time: 18:03 ss 05/19 16:32 Order name: Basic Metabolic Panel; Complete Time: 18:03 EDMS 05/19 16:32 Order name: Liver (Hepatic) Function; Complete Time: 18:03 EDMS 05/19 16:39 Order name: Hemoglobin A1c; Complete Time: 18:03 EDMS 05/19 20:42 Order name: ABG Arterial Blood Gas; Complete Time: 06:48 EDMS 05/19 21:52 Order name: ABG Arterial Blood Gas; Complete Time: 06:48 EDMS 05/19 22:34 Order name: ABG Arterial Blood Gas; Complete Time: 06:48 EDMS 05/20 02:04 Order name: BMP iw 05/20 02:04 Order name: Hepatitis Panel iw 05/20 02:04 Order name: CBC with Diff iw 05/20 02:04 Order name: Magnesium iw 05/20 02:04 Order name: Phosphorus iw 05/20 02:04 Order name: Troponin I; Complete Time: 06:48 iw 05/20 02:04 Order name: CPK; Complete Time: 06:48 iw 05/20 02:04 Order name: Ckmb; Complete Time: 06:48 iw 05/20 02:04 Order name: Ptt, Activated; Complete Time: 06:48 iw 05/20 02:04 Order name: PT-INR; Complete Time: 06:48 iw 05/20 02:04 Order name: Amylase, Serum; Complete Time: 06:48 iw 05/20 02:04 Order name: Lipase; Complete Time: 06:48 iw 05/20 02:05 Order name: Basic Metabolic Panel; Complete Time: 06:48 EDMS 05/20 02:05 Order name: Hepatitis Panel,Acute EDMS 05/20 02:05 Order name: CBC with Automated Diff; Complete Time: 06:48 EDMS 05/20 02:05 Order name: Magnesium; Complete Time: 06:48 EDMS 05/20 02:05 Order name: Phosphorus; Complete Time: 06:48 EDMS 05/20 02:11 Order name: Gamma Glutamyl Transpeptidase EDMS 05/20 04:35 Order name: LFT's; Complete Time: 06:48 iw 05/20 05:00 Order name: ABG Arterial Blood Gas; Complete Time: 06:48 EDMS 05/18 16:08 Order name: EKG; Complete Time: 16:09 ss 05/18 16:08 Order name: Cardiac monitoring; Complete Time: 17:18 ss 05/18 16:08 Order name: EKG - Nurse/Tech; Complete Time: 17:18 ss 05/18 16:08 Order name: IV Saline Lock; Complete Time: 17:18 ss 05/18 16:08 Order name: Labs collected and sent; Complete Time: 17:18 ss 05/18 16:08 Order name: O2 Per Protocol; Complete Time: 17:18 ss 05/18 16:08 Order name: O2 Sat Monitoring; Complete Time: 17:18 ss 05/18 16:21 Order name: NG Tube; Complete Time: 17:18 jr8 05/18 16:21 Order name: Alcantar; Complete Time: 17:18 jr8 05/18 16:43 Order name: CT Head Brain wo Cont; Complete Time: 18:13 jr8 05/18 16:46 Order name: Labs - recollect needed: recollect green top; Complete Time: 17:18 bd 05/18 17:01 Order name: Chest Single View XRAY; Complete Time: 17:42 jd3 05/19 17:15 Order name: Chest Single View XRAY; Complete Time: 18:03 hb 05/20 08:12 Order name: EKG Electrocardiogram EDMS Administered Medications: 05/19 13:55 Discontinued: Dopamine drip 5 mcg/kg/min - (DOPamine 400 mg, D5W 250 ml) IV at hb calculated rate continuous; Titrate to keep systolic blood pressure greater than 90mmHg 05/18 15:15 Drug: NS 0.9% 1000 ml Route: IV; Rate: 1 bolus; Site: right antecubital; ap3 16:04 Drug: NS 0.9% 1000 ml Route: IV; Rate: 1 bolus; Site: right antecubital; ap3 16:12 Drug: NS 0.9% 1000 ml Route: IV; Rate: 1 bolus; Site: right antecubital; ap3 16:15 Drug: Dopamine drip 5 mcg/kg/min - (DOPamine 400 mg, D5W 250 ml) Route: IV; Rate: ap3 calculated rate; Site: right femoral; 05/19 07:15 Follow up: Rate change 35 mcg/min hb 05/18 16:18 Drug: Levophed (norepinephrine) (4 mg/250 mL D5W 10 mcg/min Route: IV; Rate: calculated ap3 rate; Site: right femoral; 16:53 Follow up: Rate change 20 mcg/min ap3 05/19 13:31 Drug: Phenylephrine 50 mcg/min Route: IV; Rate: calculated rate; Site: Other; hb 13:54 Follow up: Rate change 100 mcg/min hb 18:41 Follow up: Response: No adverse reaction; IV Status: Infusion continued hb 17:13 Drug: Tylenol Suppository 650 mg Route: AR; hb 18:41 Follow up: Response: No adverse reaction; Temperature is decreased hb 17:25 Drug: Solu-CORTEF (hyrdoCORTISONE) 100 mg Route: IVP; Site: Other; hb 18:00 Follow up: Response: No adverse reaction hb 17:25 Drug: Zosyn (piperacillin-tazobactam) 3.375 grams Route: IVPB; Infused Over: 60 mins; hb Site: Other; 17:25 Drug: Albuterol 2.5 mg Route: Inhalation; hb 18:41 Follow up: Response: No adverse reaction hb 17:25 Drug: HEParin 5000 units Route: Sub-Q; Site: abdomen; hb 18:41 Follow up: Response: No adverse reaction hb 17:59 Drug: NS 0.9% 1000 ml Route: IV; Rate: 125 ml/hr; Site: Other; hb 18:06 Drug: Vasopressin 0.02 units/min Route: IV; Rate: calculated rate; Site: Other; hb 21:37 Drug: Sodium Bicarbonate 1 amp Route: IVP; Site: right femoral; iw 23:01 Drug: Sodium Bicarbonate 1 amp Route: IVP; Site: right femoral; iw 23:01 Drug: Potassium Chloride 20 mEq Route: IV; Rate: calculated rate; Site: right femoral; iw 05/20 03:45 Drug: Tylenol Suppository 650 mg Route: AR; iw 07:11 Drug: Zosyn (piperacillin-tazobactam) 3.375 grams Route: IVPB; Infused Over: 60 mins; iw Site: right femoral; 07:11 Drug: Solu-CORTEF (hyrdoCORTISONE) 100 mg Route: IVP; Site: right femoral; iw Point of Care Testing: Blood Glucose: 05/18 16:05 Blood Glucose: 229 mg/dL; ap3 Ranges: Critical Glucose Levels:Adult <50 mg/dl or >400 mg/dl <40 mg/dl or >180 mg/dl Disposition: 05/19 16:24 Critical Care:. jr8 Disposition Summary: 05/20/21 08:57 Transfer Ordered Transfer Location: [facility] jr8 Reason: Higher level of care jr8 Condition: Critical jr8 Problem: new jr8 Symptoms: are unchanged jr8 Accepting Physician: [facility](05/20/21 09:25) aa5 Diagnosis - Other nontraumatic intracerebral hemorrhage jr8 Discharge Instructions: - Discharge Summary Sheet hb Forms: - SBAR form hb - Medication Reconciliation Form jr8 Critical care time excluding procedures: 16:24 Critical care time: Bedside Care: 30 minutes, Consultation: 20 minutes, Family jr8 Intervention: 20 minutes. Total time: 70 minutes Addendum: 05/21/2021 18:05 Co-signature as Attending Physician, Cesar Arreola MD I agree with the assessment and c singh plan of care. Signatures: Dispatcher [employer] Kayce Lau, MARCIO-Chris BUCKLEY-Malinda Celis Corey, MD MD cha Rittger, Kevin, MD MD kdr Williams, Stephanie, RN RN iw Christina Pablo, RN RN aa5 Lindsey Villalobos, RN Morris Ramirez PA PA jr8 Lele Brown, MARCIO-C HEDIS REGISTERED NURSE RN-Cla1 Breann Raman, DANIELA SUAREZ Som Nieto, RN RN jd3 Amanda Galdamez RN RN ap3 Corrections: (The following items were deleted from the chart) 05/18 16:41 16:37 Chest Single View+RAD.RAD.BRZ ordered. EDLA EDMS 16:44 16:15 CORONAVIRUS+MR.LAB.BRZ ordered. EDLA EDMS 17:30 16:44 Angio Aorta For Dissection+CT.RAD.BRZ ordered. EDLA EDMS 05/19 12:39 12:39 ABG Arterial Blood Gas ordered. EDLA EDMS 12:39 12:39 ABG Arterial Blood Gas ordered. EDLA EDMS 12:40 12:33 ED course: Under the auspices of Dr. Jed Coates and Dr. Chris Wagoner is along jr8 with myself. Patient had brain test completed. Results are as follows. Patient has remained in deep unresponsive, with no painful stimuli. Patient has no brainstem reflexes after being tested. Patient has no spontaneous respirations. Patient has no spontaneous movement or posturing. Patient had no elicited cranial nerve reflexes present. Patient's pupils were fixed and dilated. Patient had no corneal reflexes bilaterally. Patient had no eye movements with head turning to the left or to the right. Patient had no nystagmus and response to irrigation with cold water in both ears. Patient had no gag reflex. In addition to this we also completed apnea test. Patient had been on ventilator and preoxygenated. We disconnected the ventilator and gave oxygen via central tracheal cannulation at 12 L/min. Patient was left off ventilator and monitored for the next 10 minutes. During that period of time she had no decrease in oxygenation via pulse oximetry but had 0 spontaneous respirations. ABG was performed before procedure with a CO2 of 46.7. After apnea test was performed another ABG was completed. The CO2 at that time was 92.3. This confirms a CO2 greater than 60 with no spontaneous respirations. Dr. Bassett, Dr. White, and myself discussed results and physical exam. At this time all 3 and her agreement that patient clinically is brain-. This was relayed to family which they understood. [facility] was also notified.. jr8 05/20 09:25 08:57 [facility] Team jr8 aa5
--- NOTE | 2021-05-20 10:50 | EKG ---
Test Date: 2021-05-19 Test Time: 16:41:51 Engineering Secretary: LORNA MEASUREMENT RESULTS: Intervals: Rate: 129 WY: 104 QRSD: 80 QT: 394 QTc: 577 [place]: P: WY: 104 QRS: 121 T: 63 INTERPRETIVE STATEMENTS: Age and gender specific ECG analysis Sinus tachycardia with short [place] Possible Right ventricular hypertrophy Septal infarct, age undetermined Lateral infarct, possibly acute ACUTE MD / STEMI Abnormal ECG Compared to ECG 05/18/2021 16:16:13 Short [place] interval now present Myocardial infarct finding now present Sinus rhythm no longer present Right-axis deviation no longer present ST (T wave) deviation no longer present Prolonged QT interval no longer present Electronically Signed On 05-20-21 10:48:21 CDT by Diego Jung
[2021-05-20 11:38] VITALS: TEMP 99.5
[2021-05-20 11:39] VITALS: BP 118/84; O2SAT 100
== END 2021-05-20 09:25 | disposition short-term general hospital (02) ==
LOC: ER 16:02
PROC: 0BH17EZ Insertion of Endotracheal Airway into Trachea, Via Natural or Artificial Opening (ICD-10-PCS; principal; 2021-05-18)
PROC: 5A1935Z Respiratory Ventilation, Less than 24 Consecutive Hours (ICD-10-PCS; 2021-05-18)
PROC: 06HM33Z Insertion of Infusion Device into Right Femoral Vein, Percutaneous Approach (ICD-10-PCS; 2021-05-18)
DX: I61.8 Other nontraumatic intracerebral hemorrhage (principal)
CPT/HCPCS: 31500; 36415; 51702; 70450; 71045; 80048; 80074; 80076; 82150; 82550; 82553; 82805; 82947; 82977; 83690; 83735; 83880; 84100; 84484; 85025; 85610; 85730; 86850; 86900; 86901; 92950; 93005; 94002; 94003; 96372; 99291; 99292; J1720; J2543; J7060; U0003